=== PATIENT | female | born 1975 | race Caucasian/White ===

== ENCOUNTER 2018-04-15 06:17 | Day surgery (SDC) | payer OTHER ==
[2018-03-27 13:59] VITALS: BMI 27.8
[2018-04-15] MEDS ORDERED: Clindamycin 600mg/50ml NS 600 MG/50 ML BAG IVPB ONE (06:56)
[2018-04-15] MEDS ORDERED: Morphine 10 mg/5 ml Oral Soln PO PRN (09:11)
[2018-04-15] MEDS ORDERED: Dextrose 5%/0.45% NS 1,000 ML IV SCH (09:15)
[2018-04-15] MEDS ORDERED: Lactated Ringer's 1,000 ML IV ONE (09:35)
[2018-04-15] MEDS ORDERED: Propofol 10 mg/ml Inj (20 ML) ONE ×2 (09:46→10:09)
[2018-04-15] MEDS ORDERED: Midazolam 2 MG/2 ML VIAL ONE (09:46)
[2018-04-15] MEDS ORDERED: Rocuronium 10 mg/ml (5 ml) ONE (10:00)
[2018-04-15] MEDS ORDERED: Neostigmine Methylsulfate 3mg/3ml Syringe IV ONE (10:34)
[2018-04-15] MEDS ORDERED: HYDROmorphone 0.5 mg/0.5 ml ISec IVP PRN (10:36)
[2018-04-15 10:57] VITALS: O2SAT 100
[2018-04-15 13:09] VITALS: RESP 18
[2018-04-15 14:24] VITALS: BP 125/74; PULSE 92; TEMP 97.8
--- NOTE | 2018-04-15 21:49 | OP ---
PROCEDURE DATE: 04/15/2018 PREOPERATIVE DIAGNOSIS: Obstructive sleep apnea. POSTOPERATIVE DIAGNOSIS: Obstructive sleep apnea. PROCEDURE: Uvulopalatopharyngoplasty or UPPP. SIGNIFICANT FINDINGS: Medially deviated tonsillar pillars, low-riding soft palate. DESCRIPTION OF PROCEDURE: The patient was brought into the room, placed in supine position. Anesthesia initiated through an ET tube. The patient was draped in the usual manner. A mouth gag was placed in the oral cavity, opened and suspended on the [employer] controls engineer the usual manner. The right tonsil was grabbed and pulled medially. Incision was made in the anterior tonsillar pillar using plasma. Dissections were done between tonsil and tonsillar fossa using a plasma until the tonsil was removed. Bleeding was controlled using plasma knife. Next, the other tonsil was grabbed and pulled medially. Incision was made in the anterior tonsillar pillar using a plasma. Dissections were done between tonsil and tonsillar fossa using a plasma until the tonsil was removed. Bleeding was controlled using plasma knife. Both tonsillar beds were rubbed vigorously with plasma knife wand. No bleeding was noted. Mouth gag was let down for 30 seconds, put back up, no bleeding was noted. The uvula was cut going from superior to inferior and anterior to posterior direction leaving a posterior flap. This was then reflected superiorly and sutured to the soft palate. The tonsillar pillars were sutured together using intraoperative sutures. was placed in the oral cavity and nasopharynx while the palate was flushed posteriorly to make sure that the patient would not get velopharyngeal insufficiency while this was being done. At that point, the mouth gag was taken down and removed. The patient was taken off anesthesia and taken to the recovery room in a stable manner. Rakesh Cortez MD
== END 2018-04-15 14:53 | disposition home or self-care (01) ==
LOC: C.SDS 06:17
PROVIDERS: ATTEND Otolaryngology
DX: G47.33 Obstructive sleep apnea (adult) (pediatric) (principal); J35.1 Hypertrophy of tonsils
CPT/HCPCS: 42145; 88304; 88305; J1100; J1170; J2001; J2250; J2704; J2710; J3010; J7120